=== PATIENT | male | born 1980 | race Caucasian/White ===

== ENCOUNTER 2016-03-19 09:10 | Emergency (ER) | payer OTHER ==
[~2016-03-19] VITALS: Wt 80.0 kg
[2016-03-19] MEDS ORDERED: ACETAMINOPHEN 325 MG TAB PO ONE (11:00)
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
[2016-03-19] MEDS ORDERED: ACET500C5 PO (13:40)
[2016-03-19] MEDS ORDERED: CYCL-319 PO (13:40)
[2016-03-19 13:50] VITALS: BP 126/67; PULSE 79; RESP 20; TEMP 98.1
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
== END 2016-03-19 13:54 | disposition home or self-care (01) ==
LOC: FTE 09:10
DX: S59.902A Unspecified injury of left elbow, initial encounter (principal); S19.9XXA Unspecified injury of neck, initial encounter; S29.001A Unspecified injury of muscle and tendon of front wall of thorax, initial encounter; S89.91XA Unspecified injury of right lower leg, initial encounter; S39.92XA Unspecified injury of lower back, initial encounter; F17.210 Nicotine dependence, cigarettes, uncomplicated; R42 Dizziness and giddiness; V49.49XA Driver injured in collision with other motor vehicles in traffic accident, initial encounter
CPT/HCPCS: 70450; 71010; 72040; 72072; 72100; 73030; 73080; 73562; Z7610